=== PATIENT | female | born 1980 | race Caucasian/White ===

== ENCOUNTER 2021-11-22 09:41 | Emergency (ER) | payer SELFPAY | END 2021-11-22 10:40 | disposition left against medical advice (07) | LOC: MW.ED 09:41 | DX: Z53.21 Procedure and treatment not carried out due to patient leaving prior to being seen by health care provider (principal) ==

== ENCOUNTER 2021-11-22 13:57 | Emergency (ER) | payer SELFPAY ==
[2021-11-22 15:20] LABS: CORONAVIRUS COVID-19 NAA POSITIVE (NEGATIVE); INFLUENZA A NAA NEGATIVE (NEGATIVE); INFLUENZA B NAA NEGATIVE (NEGATIVE)
== END 2021-11-22 15:47 | disposition home or self-care (01) ==
LOC: MW.ED 13:57
DX: U07.1 COVID-19 (principal); J01.90 Acute sinusitis, unspecified
CPT/HCPCS: 0240U; 99283